=== PATIENT | male | born 1975 | race Caucasian/White ===

== ENCOUNTER 2018-03-01 06:34 | Emergency (ER) | payer MEDICAID, OTHER ==
[~2018-03-01] VITALS: Ht 167.6 cm; Wt 68.0 kg
[2018-03-01 06:45] VITALS: BP 146/82
[2018-03-01] MEDS ORDERED: TDAP [DIPH/PERTUSSIS/TET] 0.5 ML VIAL IM ONE ×2 (07:24→07:30)
[2018-03-01] MEDS ORDERED: LIDOCAINE 1%-EPI 1:100,000 20 ML VIAL ONE (07:24)
[2018-03-01] MEDS ORDERED: LIDOCAINE /MPF 1% VIAL 5 ML VIAL ONE (07:51)
[2018-03-01] MEDS ORDERED: CEFAZOLIN 1 GM ONE (08:23)
[2018-03-01] MEDS ORDERED: WATER FOR INJECTION,STERILE 10 ML ONE (08:23)
[2018-03-01] MEDS ORDERED: CEFAZOLIN 1 GM VIAL IM ONE (08:30)
== END 2018-03-01 08:35 | disposition home or self-care (01) ==
LOC: EDBD → ER 06:34
DX: S60.453A Superficial foreign body of left middle finger, initial encounter (principal); F17.200 Nicotine dependence, unspecified, uncomplicated; W45.8XXA Other foreign body or object entering through skin, initial encounter; Y93.89 Activity, other specified; Y92.89 Other specified places as the place of occurrence of the external cause; Y99.0 Civilian activity done for income or pay
CPT/HCPCS: 10120; 90471; 90715; 96372; 99284; A4606; J0690; J3490 ×2; Z7610

== ENCOUNTER 2018-03-05 07:25 | Emergency (ER) | payer MEDICAID, OTHER ==
[~2018-03-05] VITALS: Ht 170.2 cm; Wt 65.8 kg
[2018-03-05 07:31] VITALS: BP 152/88
== END 2018-03-05 07:41 | disposition home or self-care (01) ==
LOC: ER 07:28
DX: S61.212D Laceration without foreign body of right middle finger without damage to nail, subsequent encounter (principal); F17.200 Nicotine dependence, unspecified, uncomplicated; X58.XXXD Exposure to other specified factors, subsequent encounter
CPT/HCPCS: A4606; Z7502; Z7610

== ENCOUNTER 2023-11-11 08:18 | Emergency (ER) | payer MEDICAID ==
[~2023-11-11] VITALS: Ht 170.2 cm; Wt 79.4 kg
[2023-11-11 08:33] VITALS: BP 163/105; TEMP 98
[2023-11-11] MEDS ORDERED: IBUP-1955 PO (09:01)
[2023-11-11] MEDS ORDERED: METH4TAB17 PO (09:01)
[2023-11-11] MEDS ORDERED: dexaMETHasone SOD PHOSPHATE 1 ML ONE (09:04)
[2023-11-11] MEDS ORDERED: KETOROLAC TROMETHAMINE 15 MG/ML VIAL ONE (09:04)
[2023-11-11] MEDS: dexaMETHasone SOD PHOSPHATE 10 MG/ML VIAL IM ONE (09:10)
[2023-11-11] MEDS: KETOROLAC TROMETHAMINE 15 MG/ML VIAL IM ONE (09:11)
[2023-11-11 09:13] VITALS: O2SAT 98
== END 2023-11-11 09:16 | disposition home or self-care (01) ==
LOC: ER 08:28
DX: M79.601 Pain in right arm (principal); G58.8 Other specified mononeuropathies; F17.200 Nicotine dependence, unspecified, uncomplicated
CPT/HCPCS: 99284; 96372 ×2; J1100; J1885

== ENCOUNTER 2024-11-17 13:33 | Emergency (ER) | payer MEDICAID ==
[~2024-11-17] VITALS: Ht 170.2 cm; Wt 74.8 kg
[~2024-11-17 13:33] MED LIST: IBUP-1955 PO; METH4TAB17 PO
[2024-11-17 14:52] LABS: BASOPHILS % (AUTO) 0.4 % (0.0-2.0); EOSINOPHILS # (AUTO) 0.1 K/uL (0.0-0.7); EOSINOPHILS % (AUTO) 0.9 % (0.0-6.0); HEMATOCRIT 47 % (39-51); HEMOGLOBIN 16.1 g/dL (13.5-17.5); LYMPHOCYTES # (AUTO) 1.3 K/uL (0.8-4.8); LYMPHOCYTES % (AUTO) 10.3 % (20.0-44.0); MEAN CORPUSCULAR HEMOGLOBIN 32 PG (26.0-33.0); MEAN CORPUSCULAR HGB CONC 35 g/dl (31.0-36.0); MEAN CORPUSCULAR VOLUME 91 fL (80-96); MONOCYTES # (AUTO) 1.2 K/uL (0.1-1.30); MONOCYTES % (AUTO) 9.5 % (2.0-12.0); NEUTROPHILS # (AUTO) 9.9 K/uL (1.8-8.9); NEUTROPHILS % (AUTO) 78.9 % (43.0-81.0); PLATELET COUNT (AUTO) 351 K/uL (150-450); RED BLOOD CELL COUNT(AUTO) 5.08 MIL/uL (4.5-6.0); WHITE BLOOD COUNT (AUTO) 12.5 K/uL (4.3-11.0)
[2024-11-17 14:56] LABS: CALCIUM, SERUM 9.3 mg/dL (8.5-10.1); CARBON DIOXIDE 25 mmol/L (21-32); CHLORIDE 100 mmol/L (98-107); CREATININE 1.3 mg/dL (0.6-1.3); GLUCOSE 80 mg/dL (74-106); POTASSIUM 3.4 mmol/L (3.5-5.1); SODIUM SERUM 139 mmol/L (136-145); UREA NITROGEN, BLOOD 27 mg/dL (7-18)
[2024-11-17 15:01] LABS: ALANINE AMINOTRANSFERASE 34 U/L (12-78); ALBUMIN 4.5 g/dL (3.4-5.0); ALCOHOL, BLOOD < 3 mg/dL (0-10); ALKALINE PHOSPHATASE 106 U/L (46-116); ASPARTATE AMINOTRANSFERASE 37 U/L (15-37); BILIRUBIN,DIRECT 0.3 mg/dL (0.0-0.2); BILIRUBIN,TOTAL 1.3 mg/dL (0.2-1.0); TOTAL PROTEIN, SERUM 8.3 g/dL (6.4-8.2)
[2024-11-17 15:02] LABS: ACETAMINOPHEN 0 ug/ml (10-30); SALICYLATE 2.5 mg/dL (2.8-20.0)
[2024-11-17 15:23] LABS: AMPHETAMINE, URINE NEGATIVE (NEGATIVE); BARBITURATE, URINE NEGATIVE (NEGATIVE); BENZODIAZEPINE, URINE NEGATIVE (NEGATIVE); CANNABINOID, URINE POSITIVE (NEGATIVE); COCCAINE, URINE NEGATIVE (NEGATIVE); OPIATE, URINE NEGATIVE (NEGATIVE); PHENCYCLIDINE SCREEN,URINE NEGATIVE (NEGATIVE)
[2024-11-17 15:42] LABS: APPEARANCE,URINE CLEAR (CLEAR); BILIRUBIN,URINE 1+ (NEGATIVE); BLOOD, URINE 3+ Ery/uL (NEGATIVE); COLOR,URINE YELLOW (YELLOW); KETONES,URINE 3+ mg/dL (NEGATIVE); LEUKOCYTE ESTERASE ,URINE NEGATIVE (NEGATIVE); NITRITE, URINE NEGATIVE (NEGATIVE); PROTEIN,URINE 2+ mg/dl (NEGATIVE); UGLUCOSE NEGATIVE (NEGATIVE); UROBILINOGEN,URINE 0.2 EU/dL (0.2)
[2024-11-17 15:52] LABS: RBC,URINE 51-80 /HPF (0-2)
[2024-11-17 15:53] LABS: ADD URINE CULTURE NO; BACTERIA,URINE None seen /HPF (None Seen); HYALINE CASTS, URINE Few /LPF (None Seen); MUCUS,URINE Many /LPF (None Seen); URINE AMORPHOUS URATE Many /HPF (None Seen); WBC,URINE 0-2 /HPF (0-3)
[2024-11-17] MEDS ORDERED: CLIN300C12 PO (21:04)
[2024-11-17 21:10] VITALS: BP 129/77; TEMP 98; O2SAT 100
== END 2024-11-17 21:10 | disposition home or self-care (01) ==
LOC: ER 13:41
DX: F19.20 Other psychoactive substance dependence, uncomplicated (principal); F22 Delusional disorders; G47.00 Insomnia, unspecified; F17.200 Nicotine dependence, unspecified, uncomplicated; Z20.822 Contact with and (suspected) exposure to COVID-19
CPT/HCPCS: 36415; 80048-TC; 80076-TC; 81001; 85025-TC; G0480